=== PATIENT | male | born 1990 | race Caucasian/White ===

== ENCOUNTER 2021-11-03 22:35 | Inpatient (IN) ==
[2021-11-04] MEDS ORDERED: *HR* LORazepam 1 MG TABLET PO PRN (01:07)
[2021-11-04] MEDS ORDERED: Ibuprofen 400 MG TABLET PO PRN ×2 (01:07→11:40)
[2021-11-04] MEDS ORDERED: hydrOXYzine pamoate 25 MG CAPSULE PO PRN (01:07)
[2021-11-04] MEDS ORDERED: haloperidoL 5 MG TABLET PO PRN (01:07)
[2021-11-04] MEDS ORDERED: *HR* LORazepam 2 MG/ML VIAL IM PRN (01:07)
[2021-11-04] MEDS ORDERED: Mag Hydrox/Al Hydrox/Simeth 30 ML UDC PO PRN (01:07)
[2021-11-04] MEDS ORDERED: Haloperidol Lactate 5 MG/ML VIAL IM PRN (01:07)
[2021-11-04] MEDS ORDERED: MOM Conc 10 ML UD.LIQ PO PRN (11:52)
[2021-11-04] MEDS ORDERED: PARoxetine 10 MG TABLET PO ONE (11:56)
[2021-11-04] MEDS: Fluticasone Propionate Nasal 50 MCG/SPRAY BOTTLE NS SCH (12:47)
[2021-11-04] MEDS: Budesonide/Formoterol 160/4.5 1 PUFF INH IH SCH ×2 (12:48→20:43)
[2021-11-04] MEDS: Baclofen 10 MG TABLET PO SCH (12:49)
[2021-11-04] MEDS: Loratadine 10 MG TABLET PO SCH (12:50)
[2021-11-04] MEDS: predniSONE 20 MG TABLET PO SCH (12:50)
[2021-11-04] MEDS: traZODone 50 MG TABLET PO PRN (20:30)
[2021-11-05] MEDS: Fluticasone Propionate Nasal 50 MCG/SPRAY BOTTLE NS SCH (09:10)
[2021-11-05] MEDS: Budesonide/Formoterol 160/4.5 1 PUFF INH IH SCH ×2 (09:10→21:11)
[2021-11-05] MEDS: predniSONE 20 MG TABLET PO SCH (09:11)
[2021-11-05] MEDS: Loratadine 10 MG TABLET PO SCH (09:11)
[2021-11-05] MEDS: Baclofen 10 MG TABLET PO SCH (09:11)
[2021-11-05] MEDS: traZODone 50 MG TABLET PO PRN (21:12)
[2021-11-05 21:28] VITALS: TEMP 98.3
[2021-11-06] MEDS: Loratadine 10 MG TABLET PO SCH (09:00)
[2021-11-06] MEDS: predniSONE 20 MG TABLET PO SCH (09:00)
[2021-11-06] MEDS: Baclofen 10 MG TABLET PO SCH (09:00)
[2021-11-06] MEDS: Fluticasone Propionate Nasal 50 MCG/SPRAY BOTTLE NS SCH (09:00)
[2021-11-06] MEDS: Budesonide/Formoterol 160/4.5 1 PUFF INH IH SCH (09:02)
[2021-11-06 10:04] VITALS: BP 152/88; PULSE 83; O2SAT 95
== END 2021-11-06 12:45 | disposition home or self-care (01) | DRG 885 ==
LOC: 1ANU 22:35
PROVIDERS: ADMIT Psychiatry & Neurology Psychiatry; ATTEND Psychiatry & Neurology Psychiatry